=== PATIENT | female | born 1960 | race Caucasian/White ===

== ENCOUNTER 2020-10-10 12:40 | Emergency (ER) | payer BC, OTHER ==
[2020-10-10 15:02] LABS: HEMOGLOBIN 14.4 gm/dl (12.3-15.3)
[2020-10-10 15:22] LABS: BUN/CREATININE RATIO 20 (0-10)
[2020-10-10] MEDS ORDERED: ZOFRAN ODT 4 MG4 MG SL (17:55)
[2020-10-10] MEDS ORDERED: PHENERGAN 12.12.5 M1 PO (17:55)
== END 2020-10-10 20:05 | disposition home or self-care (01) ==
LOC: ER1 12:40
PROVIDERS: Emergency Medicine
DX: Z23 Encounter for immunization (principal); U07.1 COVID-19
CPT/HCPCS: 71045; 80053; 81001; 83605; 83690; 83735; 84439; 84443; 85025; 87077; 87086; 87186; 96374; 96375; 99284; J2405; J2765; J7120; M0245

== ENCOUNTER → 2020-12-29 | Outpatient (CLI) | payer BC ==
[~2020-12-29] MED LIST: PHENERGAN 12.12.5 M1 PO; ZOFRAN ODT 4 MG4 MG SL
== END ==
LOC: HEART 5 09:49
DX: R09.02 Hypoxemia (principal); R06.02 Shortness of breath; U07.1 COVID-19
CPT/HCPCS: 94060; 94729

== ENCOUNTER → 2021-01-13 | Outpatient (CLI) | payer BC | LOC: CT 13:54 | DX: J18.9 Pneumonia, unspecified organism (principal); R06.02 Shortness of breath; R07.89 Other chest pain; Z86.16 Personal history of COVID-19 | CPT/HCPCS: 36600; 71250; 82803 ==

== ENCOUNTER → 2021-04-28 | Outpatient (CLI) | payer BC | LOC: US 08:38 | DX: M79.605 Pain in left leg (principal); R22.9 Localized swelling, mass and lump, unspecified | CPT/HCPCS: 93971 ==